=== PATIENT | male | born 1965 ===

== ENCOUNTER 2019-08-29 17:30 | Outpatient (CLI) | payer OTHER | END 2019-08-29 17:31 | disposition home or self-care (01) | LOC: SLEEPLAB 17:30 | PROVIDERS: ATTEND Internal Medicine Critical Care Medicine | DX: G47.33 Obstructive sleep apnea (adult) (pediatric) (principal); G25.81 Restless legs syndrome; R06.83 Snoring; R53.83 Other fatigue | CPT/HCPCS: 95806 ==